=== PATIENT | male | born 1990 | race African-American/Black ===

== ENCOUNTER 2018-01-22 17:37 | Emergency (ER) | payer SELFPAY ==
--- NOTE | 2018-01-22 19:03 | ER ---
Nurse's Notes [facility] Name: Donnell Chester Jr Age: 27 yrs Sex: Male : 1990 Arrival Date: 01/22/2018 Time: 17:40 Bed 23 Private MD: Diagnosis: Influenza due to identified novel influenza A virus Presentation: 01/22 17:53 Presenting complaint: Patient states: cough, congestion, and sore throat x 2 days ago. aa5 Transition of care: patient was not received from another setting of care. Onset of symptoms was January 2018. Risk Assessment: Do you want to hurt yourself or someone else? Patient reports no desire to harm self or others. Initial Sepsis Screen: Does the patient meet any 2 criteria? No. Patient's initial sepsis screen is negative. Does the patient have a suspected source of infection? No. Patient's initial sepsis screen is negative. Care prior to arrival: None. 17:53 Method Of Arrival: Ambulatory aa5 17:53 Acuity: PABLO 4 aa5 Historical: - Allergies: 17:53 No Known Allergies; aa5 - PMHx: 17:53 None; aa5 - PSHx: 17:53 None; aa5 - Immunization history:: Flu vaccine is not up to date. - Social history:: Smoking status: Patient uses tobacco products, smokes one pack cigarettes per day. - Ebola Screening: : No symptoms or risks identified at this time. Screenin:12 Abuse screen: Denies threats or abuse. Nutritional screening: No deficits noted. tl3 Tuberculosis screening: No symptoms or risk factors identified. Fall Risk None identified. Assessment: 18:12 General: Appears in no apparent distress. slender, well groomed, well developed, well tl3 nourished, Behavior is calm, cooperative, appropriate for age. Pain: Complains of pain in sore throat. Neuro: Level of Consciousness is awake, alert, obeys commands, Oriented to person, place, time, situation, Appropriate for age. Cardiovascular: Patient's skin is warm and dry. Respiratory: Reports cough that is productive, persistent Airway is patent Respiratory effort is even, unlabored, Respiratory pattern is regular, symmetrical. GI: No signs and/or symptoms were reported involving the gastrointestinal system. : No signs and/or symptoms were reported regarding the genitourinary system. EENT: Nares with drainage noted Oral mucosa is moist. Throat is reddened. Derm: No signs and/or symptoms reported regarding the dermatologic system. Musculoskeletal: No signs and/or symptoms reported regarding the musculoskeletal system. 19:17 Reassessment: No changes from previously documented assessment. Patient and/or family tl3 updated on plan of care and expected duration. Pain level reassessed. Patient is alert, oriented x 3, equal unlabored respirations, skin warm/dry/pink. Dr Sow at bedside discussing POC with pt and family. Vital Signs: 17:53 BP 134 / 75; Pulse 107; Resp 18 S; Temp 100.1(O); Pulse Ox 99% on R/A; Weight 92.99 kg aa5 (R); Height 6 ft. 3 in. (190.50 cm) (R); Pain 8/10; 19:17 BP 131 / 85; Pulse 85; Resp 18; Pulse Ox 100% on R/A; tl3 17:53 Body Mass Index 25.62 (92.99 kg, 190.50 cm) aa5 ED Course: 17:40 Patient arrived in ED. rg4 17:53 Triage completed. aa5 17:53 Arm band placed on. aa5 17:59 Matti Sow MD is Attending Physician. 18:06 Sara Davila, SARAH is Primary Nurse. tl3 18:12 Patient has correct armband on for positive identification. tl3 18:12 No provider procedures requiring assistance completed. Patient did not have IV access tl3 during this emergency room visit. Administered Medications: No medications were administered Outcome: 19:03 Discharge ordered by . 19:17 Discharged to home ambulatory. tl3 19:17 Condition: stable 19:17 Discharge instructions given to patient, family, Instructed on discharge instructions, follow up and referral plans. medication usage, Demonstrated understanding of instructions, follow-up care, medications, Prescriptions given X 1. 19:20 Patient left the ED. tl3 Signatures: Diya Srinivasan RN RN aa5 Estela Choi rg4 Matti Sow MD MD gs Lowrey, Tammy, RN RN tl3 Corrections: (The following items were deleted from the chart) 17:55 17:53 BP 134 / 75; Pulse 107bpm; Resp 18bpm; Spontaneous; Pulse Ox 99% RA; Temp 100.1F aa5 Oral; aa5
--- NOTE | 2018-01-22 19:03 | EDPHYS ---
Physician Documentation [facility] Name: Donnell Chester Jr Age: 27 yrs Sex: Male : 1990 Arrival Date: 01/22/2018 Time: 17:40 Bed 23 Private MD: ED Physician Matti Sow HPI: 01/22 18:31 This 27 yrs old Black Male presents to ER via Ambulatory with complaints of Flu gs Symptoms. 18:31 Onset: The symptoms/episode began/occurred 2 day(s) ago. Severity of symptoms: At their gs worst the symptoms were moderate, in the emergency department the symptoms are unchanged. Associated signs and symptoms: Pertinent positives: fever, nausea, sore throat, cough. The patient has not experienced similar symptoms in the past. Historical: - Allergies: 17:53 No Known Allergies; aa5 - PMHx: 17:53 None; aa5 - PSHx: 17:53 None; aa5 - Immunization history:: Flu vaccine is not up to date. - Social history:: Smoking status: Patient uses tobacco products, smokes one pack cigarettes per day. - Ebola Screening: : No symptoms or risks identified at this time. ROS: 18:31 All other systems are negative. gs Exam: 18:31 Head/Face: Normocephalic, atraumatic. Eyes: Pupils equal round and reactive to light, gs extra-ocular motions intact. Lids and lashes normal. Conjunctiva and sclera are non-icteric and not injected. Cornea within normal limits. Periorbital areas with no swelling, redness, or edema. ENT: Nares patent. No nasal discharge, no septal abnormalities noted. Tympanic membranes are normal and external auditory canals are clear. Oropharynx with no redness, swelling, or masses, exudates, or evidence of obstruction, uvula midline. Mucous membranes moist. Neck: Trachea midline, no thyromegaly or masses palpated, and no cervical lymphadenopathy. Supple, full range of motion without nuchal rigidity, or vertebral point tenderness. No Meningismus. Chest/axilla: Normal chest wall appearance and motion. Nontender with no deformity. No lesions are appreciated. 18:31 Respiratory: Lungs have equal breath sounds bilaterally, clear to auscultation and percussion. No rales, rhonchi or wheezes noted. No increased work of breathing, no retractions or nasal flaring. Abdomen/GI: Soft, non-tender, with normal bowel sounds. No distension or tympany. No guarding or rebound. No evidence of tenderness throughout. Back: No spinal tenderness. No costovertebral tenderness. Full range of motion. Skin: Warm, dry with normal turgor. Normal color with no rashes, no lesions, and no evidence of cellulitis. MS/ Extremity: Pulses equal, no cyanosis. Neurovascular intact. Full, normal range of motion. Neuro: Awake and alert, GCS 15, oriented to person, place, time, and situation. Cranial nerves II-XII grossly intact. Motor strength 5/5 in all extremities. Sensory grossly intact. Cerebellar exam normal. Normal gait. 18:31 Constitutional: The patient appears alert, awake. 18:31 Cardiovascular: Rate: tachycardic, Rhythm: regular, Pulses: no pulse deficits are appreciated. Vital Signs: 17:53 BP 134 / 75; Pulse 107; Resp 18 S; Temp 100.1(O); Pulse Ox 99% on R/A; Weight 92.99 kg aa5 (R); Height 6 ft. 3 in. (190.50 cm) (R); Pain 8/10; 19:17 BP 131 / 85; Pulse 85; Resp 18; Pulse Ox 100% on R/A; tl3 17:53 Body Mass Index 25.62 (92.99 kg, 190.50 cm) aa5 MDM: 18:06 Patient medically screened. gs 18:31 Differential Diagnosis: Bronchitis Influenza Upper Respiratory Infection. Data gs reviewed: vital signs, nurses notes. 19:02 Response to treatment: the patient's symptoms have markedly improved after treatment, gs and as a result, I will discharge patient. 01/22 18:07 Order name: Flu 01/22 18:07 Order name: Strep; Complete Time: 19:01 gs 01/22 18:08 Order name: Influenza Screen (A ; Complete Time: 19:01 EDMS 01/22 19:02 Order name: Throat Culture EDMS Administered Medications: No medications were administered Disposition: 01/22/18 19:03 Discharged to Home. Impression: Influenza due to identified novel influenza A virus. - Condition is Stable. - Discharge Instructions: Influenza, Adult. - Prescriptions for Tamiflu 75 mg Oral Capsule - take 1 tablet by ORAL route every 12 hours for 5 days; 10 tablet. - Medication Reconciliation Form, Thank You Letter, Antibiotic Education, Prescription Opioid Use, Work release form form. - Follow up: Private Physician; When: 2 - 3 days; Reason: Re-evaluation by your physician. Signatures: Dispatcher [employer] Diya Chu, RN RN aa5 Matti Sow MD MD gs Sara Davila RN RN tl3 Corrections: (The following items were deleted from the chart) 19:20 19:03 01/22/2018 19:03 Discharged to Home. Impression: Influenza due to identified tl3 novel influenza A virus. Condition is Stable. Forms are Medication Reconciliation Form, Thank You Letter, Antibiotic Education, Prescription Opioid Use. Follow up: Private Physician; When: 2 - 3 days; Reason: Re-evaluation by your physician. gs
== END 2018-01-22 19:20 | disposition home or self-care (01) ==
LOC: ER 17:37
DX: J10.1 Influenza due to other identified influenza virus with other respiratory manifestations (principal); F17.210 Nicotine dependence, cigarettes, uncomplicated
CPT/HCPCS: 87070; 87081; 87804; 99282

== ENCOUNTER 2018-12-02 23:28 | Emergency (ER) | payer OTHER, SELFPAY ==
[2018-12-03] MEDS ORDERED: MAGNE/ALUM HYDROXD 30 ML UCUP ONE (00:09)
[2018-12-03] MEDS ORDERED: PANTOPRAZOLE 40 MG INJ ONE (00:10)
[2018-12-03] MEDS ORDERED: LIDOCAINE VISCOUS 2% SOLN 15 ML UDC ONE (00:10)
[2018-12-03] MEDS ORDERED: NA CHLORIDE 0.9% 1,000 ML ONE (00:10)
[2018-12-03 00:32] LABS: Absolute Lymphocytes (CBC) 2.7 K/uL (0.7-4.9); Basophils % 0.8 % (0-1.3); Hematocrit 46.1 % (39.6-49.0); Lymphocytes % 38.7 % (15.3-44.8); MPV 8.9 fL (7.6-11.3); RBC Red Blood Cell Count 5.25 M/uL (4.33-5.43)
[2018-12-03 00:41] LABS: ALT/SGPT 15 U/L (12-78); AST/SGOT 12 U/L (15-37); Albumin 3.9 g/dL (3.4-5.0); Alkaline Phosphatase 68 U/L (45-117); BUN Blood Urea Nitrogen 9 mg/dL (7-18); Bicarbonate 28 mmol/L (21-32); Bilirubin Direct 0.1 mg/dL (0-0.2); Bilirubin Total 0.5 mg/dL (0.2-1.0); Glucose Level 97 mg/dL (74-106); Lipase 212 U/L (73-393); Potassium 3.4 mmol/L (3.5-5.1); Protein, Total 7.4 g/dL (6.4-8.2); Sodium Level 143 mmol/L (136-145)
--- NOTE | 2018-12-03 01:17 | ER ---
Nurse's Notes [facility] Name: Donnell Chester Jr Age: 28 yrs Sex: Male : 1990 Arrival Date: 12/02/2018 Time: 23:32 Bed 19 Private MD: Diagnosis: Abdominal tenderness;Gastritis, unspecified;Hypokalemia Presentation: 12/02 23:42 Presenting complaint: Patient states: on and off abdominal pain since Wednesday. Pain is wh relieved by Pepto-Bismol for a while then come backs. Transition of care: patient was not received from another setting of care. Onset of symptoms was November 29, 2018. Risk Assessment: Do you want to hurt yourself or someone else? Patient reports no desire to harm self or others. Initial Sepsis Screen: Does the patient meet any 2 criteria? No. Patient's initial sepsis screen is negative. Does the patient have a suspected source of infection? No. Patient's initial sepsis screen is negative. Care prior to arrival: None. 23:42 Method Of Arrival: Ambulatory 23:42 Acuity: PABLO 3 Historical: - Allergies: 23:45 No Known Allergies; wh - Immunization history:: Adult Immunizations up to date. - Social history:: Smoking status: Patient uses tobacco products. - Ebola Screening: : Patient negative for fever greater than or equal to 101.5 degrees Fahrenheit, and additional compatible Ebola Virus Disease symptoms Patient denies exposure to infectious person. - Family history:: not pertinent. Screenin:43 Abuse screen: Denies threats or abuse. Denies injuries from another. Nutritional wh screening: No deficits noted. Tuberculosis screening: No symptoms or risk factors identified. Fall Risk None identified. Assessment: 23:43 General: Appears in no apparent distress. Behavior is calm, cooperative, appropriate wh for age. Pain: Complains of pain in abdomen Pain does not radiate. Pain currently is 2 out of 10 on a pain scale. at worst was 8 out of 10 on a pain scale. Pain began 2-3 days ago. Neuro: Level of Consciousness is awake, alert, obeys commands. Cardiovascular: Heart tones S1 S2. Respiratory: Airway is patent Respiratory effort is even, unlabored, Respiratory pattern is regular, symmetrical, Breath sounds are clear bilaterally. GI: Abdomen is flat, non-distended, Bowel sounds present X 4 quads. Abd is soft and non tender X 4 quads. : No signs and/or symptoms were reported regarding the genitourinary system. EENT: No signs and/or symptoms were reported regarding the EENT system. Derm: Skin is intact, is healthy with good turgor, Skin is pink, warm \T\ dry. normal. Musculoskeletal: Circulation, motion, and sensation intact. 12/03 00:46 Reassessment: Patient appears in no apparent distress at this time. No changes from previously documented assessment. Patient and/or family updated on plan of care and expected duration. Pain level reassessed. Patient is alert, oriented x 3, equal unlabored respirations, skin warm/dry/pink. Vital Signs: 12/02 23:45 BP 134 / 69; Pulse 71; Resp 18; Temp 97.9; Pulse Ox 98% on R/A; 12/03 00:47 BP 127 / 75; Pulse 62; Resp 18; Pulse Ox 99% on R/A; ED Course: 12/02 23:32 Patient arrived in ED. cl3 23:38 Franchesca Smith is Primary Nurse. wh 23:[address] MD is Attending Physician. renea 23:43 Triage completed. 23:44 Arm band placed on left wrist. 23:45 Patient has correct armband on for positive identification. Bed in low position. Call light in reach. Side rails up X 1. Pulse ox on. NIBP on. 12/03 00:01 Inserted saline lock: 20 gauge in right antecubital area, using aseptic technique. Blood collected. 01:17 Katelyn Howard MD is Referral Physician. renea 01:29 No provider procedures requiring assistance completed. IV discontinued, intact, bleeding controlled, No redness/swelling at site. Administered Medications: 00:18 Drug: NS 0.9% 1000 ml Route: IV; Rate: 1 bolus; Site: right antecubital; 01:15 Follow up: Response: No adverse reaction; IV Status: Completed infusion 00:18 Drug: ProTONIX 40 mg Route: IVP; Site: right antecubital; 01:15 Follow up: Response: No adverse reaction 00:18 Drug: GI Cocktail without - (Maalox Suspension 30 ml, Lidocaine Liquid 2 % 15 wh ml) Route: PO; 01:15 Follow up: Response: No adverse reaction; Pain is decreased Outcome: 01:17 Discharge ordered by MD. meier 01:29 Discharged to home ambulatory. 01:29 Condition: good 01:29 Discharge instructions given to patient, Instructed on discharge instructions, follow up and referral plans. medication usage, POC Abd Pain Demonstrated understanding of instructions, follow-up care, medications, POC Prescriptions given X 2. 01:30 Patient left the ED. Signatures: Vignesh Lane MD MD cha Habalo, Winsy wh Lewis, Charde cl3
--- NOTE | 2018-12-03 01:18 | EDPHYS ---
Physician Documentation [facility] Name: Donnell Chester Jr Age: 28 yrs Sex: Male : 1990 Arrival Date: 12/02/2018 Time: 23:32 Bed 19 Private MD: ED Physician Vignesh Lane HPI: 12/02 23:55 This 28 yrs old Black Male presents to ER via Ambulatory with complaints of Abdominal renea Pain. 23:55 The patient presents with abdominal pain. Onset: The symptoms/episode began/occurred 5 renea day(s) ago. The symptoms do not radiate. Associated signs and symptoms: none. The symptoms are described as burning, crampy. Modifying factors: The symptoms are alleviated by nothing, the symptoms are aggravated by nothing. Severity of pain: At its worst the pain was mild moderate in the emergency department the pain is unchanged. Historical: - Allergies: 23:45 No Known Allergies; wh - Immunization history:: Adult Immunizations up to date. - Social history:: Smoking status: Patient uses tobacco products. - Ebola Screening: : Patient negative for fever greater than or equal to 101.5 degrees Fahrenheit, and additional compatible Ebola Virus Disease symptoms Patient denies exposure to infectious person. - Family history:: not pertinent. ROS: 23:55 Constitutional: Negative for fever, chills, and weight loss, Eyes: Negative for injury, renea pain, redness, and discharge, ENT: Negative for injury, pain, and discharge, Neck: Negative for injury, pain, and swelling, Cardiovascular: Negative for chest pain, palpitations, and edema, Respiratory: Negative for shortness of breath, cough, wheezing, and pleuritic chest pain, Back: Negative for injury and pain, : Negative for injury, bleeding, discharge, and swelling, MS/Extremity: Negative for injury and deformity, Skin: Negative for injury, rash, and discoloration, Neuro: Negative for headache, weakness, numbness, tingling, and seizure, Psych: Negative for depression, anxiety, suicide ideation, homicidal ideation, and hallucinations, Allergy/Immunology: Negative for hives, rash, and allergies, Endocrine: Negative for neck swelling, polydipsia, polyuria, polyphagia, and marked weight changes, Hematologic/Lymphatic: Negative for swollen nodes, abnormal bleeding, and unusual bruising. 23:55 Abdomen/GI: Positive for abdominal pain, of the epigastric area. Exam: 23:55 Constitutional: This is a well developed, well nourished patient who is awake, alert, renea and in no acute distress. Head/Face: Normocephalic, atraumatic. Eyes: Pupils equal round and reactive to light, extra-ocular motions intact. Lids and lashes normal. Conjunctiva and sclera are non-icteric and not injected. Cornea within normal limits. Periorbital areas with no swelling, redness, or edema. ENT: Nares patent. No nasal discharge, no septal abnormalities noted. Tympanic membranes are normal and external auditory canals are clear. Oropharynx with no redness, swelling, or masses, exudates, or evidence of obstruction, uvula midline. Mucous membranes moist. Neck: Trachea midline, no thyromegaly or masses palpated, and no cervical lymphadenopathy. Supple, full range of motion without nuchal rigidity, or vertebral point tenderness. No Meningismus. Chest/axilla: Normal chest wall appearance and motion. Nontender with no deformity. No lesions are appreciated. Cardiovascular: Regular rate and rhythm with a normal S1 and S2. No gallops, murmurs, or rubs. Normal PMI, no JVD. No pulse deficits. Respiratory: Lungs have equal breath sounds bilaterally, clear to auscultation and percussion. No rales, rhonchi or wheezes noted. No increased work of breathing, no retractions or nasal flaring. Back: No spinal tenderness. No costovertebral tenderness. Full range of motion. Male : Normal genitalia with no discharge or lesions. Skin: Warm, dry with normal turgor. Normal color with no rashes, no lesions, and no evidence of cellulitis. MS/ Extremity: Pulses equal, no cyanosis. Neurovascular intact. Full, normal range of motion. Neuro: Awake and alert, GCS 15, oriented to person, place, time, and situation. Cranial nerves II-XII grossly intact. Motor strength 5/5 in all extremities. Sensory grossly intact. Cerebellar exam normal. Normal gait. Psych: Awake, alert, with orientation to person, place and time. Behavior, mood, and affect are within normal limits. 23:55 Abdomen/GI: Inspection: abdomen appears normal, Bowel sounds: normal, Palpation: mild abdominal tenderness, in the epigastric area, Liver: no appreciated palpable abnormalities, Hernia: not appreciated. Vital Signs: 23:45 BP 134 / 69; Pulse 71; Resp 18; Temp 97.9; Pulse Ox 98% on R/A; 12/03 00:47 BP 127 / 75; Pulse 62; Resp 18; Pulse Ox 99% on R/A; MDM: 12/02 23:38 Patient medically screened. [facility] 23:56 Data reviewed: vital signs, nurses notes, lab test result(s). [facility] 12/02 23:54 Order name: Basic Metabolic Panel; Complete Time: 01: [facility] 12/02 23:54 Order name: CBC with Diff; Complete Time: : [facility] 12/02 23:54 Order name: Creatinine for Radiology; Complete Time: : [facility] 12/02 23:54 Order name: Hepatic Function; Complete Time: : [facility] 12/02 23:54 Order name: Lipase; Complete Time: 01: [facility] 12/02 23:54 Order name: IV Saline Lock; Complete Time: 00:05 [facility] 12/02 23:54 Order name: Labs collected and sent; Complete Time: 00:05 [facility] 12/03 01:12 Order name: PO challenge: juice; Complete Time: 01:14 [facility] Administered Medications: 12/03 00:18 Drug: NS 0.9% 1000 ml Route: IV; Rate: 1 bolus; Site: right antecubital; 01:15 Follow up: Response: No adverse reaction; IV Status: Completed infusion 00:18 Drug: ProTONIX 40 mg Route: IVP; Site: right antecubital; 01:15 Follow up: Response: No adverse reaction 00:18 Drug: GI Cocktail without - (Maalox Suspension 30 ml, Lidocaine Liquid 2 % 15 wh ml) Route: PO; 01:15 Follow up: Response: No adverse reaction; Pain is decreased Disposition: 12/03/18 01:17 Discharged to Home. Impression: Abdominal tenderness, Gastritis, unspecified, Hypokalemia. - Condition is Stable. - Discharge Instructions: Abdominal Pain, Adult, Potassium Content of Foods, Abdominal Pain, Adult, [id number], Hypokalemia. - Prescriptions for Bentyl 20 mg Oral Tablet - take 1 tablet by ORAL route every 6 hours As needed; 20 tablet. Protonix 40 mg Oral Tablet - take 1 tablet by ORAL route once daily; 30 tablet. - Medication Reconciliation Form, Thank You Letter, Antibiotic Education, Prescription Opioid Use form. - Follow up: Private Physician; When: 2 - 3 days; Reason: Recheck today's complaints, Continuance of care, Re-evaluation by your physician. Follow up: Katelyn Howard MD; When: 2 - 3 days; Reason: Recheck today's complaints, Re-evaluation by your physician. - Problem is new. - Symptoms have improved. Signatures: Dispatcher [employer] EDLA Vignesh Lane MD MD cha Habalo, Winsy Corrections: (The following items were deleted from the chart) 01:30 01:17 12/03/2018 01:17 Discharged to Home. Impression: Abdominal tenderness; Gastritis, wh unspecified; Hypokalemia. Condition is Stable. Discharge Instructions: Abdominal Pain, Adult, Abdominal Pain, Adult, [id number]. Prescriptions for Bentyl 20 mg Oral Tablet - take 1 tablet by ORAL route every 6 hours As needed; 20 tablet, Protonix 40 mg Oral Tablet - take 1 tablet by ORAL route once daily; 30 tablet. and Forms are Medication Reconciliation Form, Thank You Letter, Antibiotic Education, Prescription Opioid Use. Follow up: Private Physician; When: 2 - 3 days; Reason: Recheck today's complaints, Continuance of care, Re-evaluation by your physician. Follow up: Katelyn Howard; When: 2 - 3 days; Reason: Recheck today's complaints, Re-evaluation by your physician. Problem is new. Symptoms have improved. renea
[2018-12-03 02:00] VITALS: BP 127/75; TEMP 97.9; O2SAT 99
== END 2018-12-03 01:30 | disposition home or self-care (01) ==
LOC: ER 23:28
DX: K29.70 Gastritis, unspecified, without bleeding (principal); E87.6 Hypokalemia; Z72.0 Tobacco use
CPT/HCPCS: 96361; 85025; 80048; 36415; 80076; 83690; 96374; 99284; C9113; J7030

== ENCOUNTER 2023-01-24 08:11 | Emergency (ER) | payer BC, OTHER, SELFPAY ==
[2023-01-24 08:56] LABS: Absolute Lymphocytes (CBC) 2.5 K/uL (0.7-4.9); Hematocrit 46.5 % (39.6-49.0); Lymphocytes % 33.5 % (15.3-44.8); MCV 86.6 fL (80-100); MPV 8.5 fL (7.6-11.3); Platelets 202 thou/uL (152-406); RBC Red Blood Cell Count 5.36 M/uL (4.33-5.43)
[2023-01-24] MEDS ORDERED: FAMOTIDINE 20 MG/2 ML VIAL IV ONE (09:06)
[2023-01-24 09:14] LABS: Albumin 3.6 g/dL (3.4-5.0); Bilirubin Total 0.4 mg/dL (0.2-1.0); Protein, Total 7.4 g/dL (6.4-8.2)
--- NOTE | 2023-01-24 09:28 | ER ---
Nurse's Notes [facility] Name: Donnlel Chester Jr Age: 32 yrs Sex: Male : 1990 Arrival Date: 01/24/2023 Time: 08:11 Bed 5 Private MD: Diagnosis: Upper abdominal pain, unspecified;Gastro-esophageal reflux disease without esophagitis Presentation: 01/24 08:22 Chief complaint: Patient states: Abdominal pain for 2 weeks. No fever. No N/V/D. ll1 Coronavirus screen: Vaccine status: Patient reports receiving the 2nd dose of the covid vaccine. Client denies travel out of the [place] in the last 14 days. At this time, the client does not indicate any symptoms associated with coronavirus-19. Ebola Screen: Patient denies travel to an Ebola-affected area in the 21 days before illness onset. Initial Sepsis Screen: Does the patient meet any 2 criteria? No. Patient's initial sepsis screen is negative. Does the patient have a suspected source of infection? Yes: Acute abdominal pain. Risk Assessment: Do you want to hurt yourself or someone else? Patient reports no desire to harm self or others. Onset of symptoms was January 11, 2023. 08:22 Method Of Arrival: Ambulatory ll1 08:22 Acuity: PABLO 3 ll1 Triage Assessment: 08:23 General: Appears in no apparent distress. Behavior is calm, cooperative, appropriate ll1 for age. Pain: Complains of pain in abdomen Pain currently is 3 out of 10 on a pain scale. Quality of pain is described as aching, crampy. GI: Reports lower abdominal pain, upper abdominal pain. Historical: - Allergies: 08:21 NSAIDS; ll1 - PMHx: 08:21 None; ll1 - PSHx: 08:21 None; ll1 - Immunization history:: Adult Immunizations up to date. - Social history:: Smoking status: Patient reports the use of cigarette tobacco products, smokes one-half pack cigarettes per day. Screenin:57 [facility] ED Fall Risk Assessment (Adult) History of falling in the last 3 months, ph including since admission No falls in past 3 months (0 pts) Score/Fall Risk Level 0 - 2 = Low Risk Oriented to surroundings, Maintained a safe environment, Hourly rounding (assess needs \T\ fall precautionary measures) done. Abuse screen: Denies threats or abuse. Denies injuries from another. Nutritional screening: No deficits noted. Tuberculosis screening: No symptoms or risk factors identified. Assessment: 08:57 General: Appears in no apparent distress. comfortable, well groomed, Behavior is calm, ph cooperative, appropriate for age. Pain: Complains of pain in epigastric area, right upper quadrant and left upper quadrant Quality of pain is described as burning. Neuro: Level of Consciousness is awake, alert, obeys commands, Oriented to person, place, time, situation. Cardiovascular: Capillary refill < 3 seconds in bilateral fingers Patient's skin is warm and dry. Respiratory: Airway is patent Respiratory effort is even, unlabored. GI: Reports upper abdominal pain, indigestion, Patient currently denies nausea, vomiting. Derm: Skin is normal. Musculoskeletal: Circulation, motion, and sensation intact. Range of motion: intact in all extremities. 09:41 Reassessment: Patient appears in no apparent distress at this time. Patient and/or ph family updated on plan of care and expected duration. Pain level reassessed. Patient is alert, oriented x 3, equal unlabored respirations, skin warm/dry/pink. Patient states feeling better. Patient states symptoms have improved. Vital Signs: 08:22 BP 139 / 95; Pulse 67; Resp 16; Temp 98.4; Pulse Ox 97% on R/A; Weight 99.79 kg; Height ll1 6 ft. 3 in. ; Pain 3/10; 09:30 BP 134 / 87; Pulse 66; Resp 18; Temp 98; Pulse Ox 97% on R/A; ph 08:22 Body Mass Index 27.50 (99.79 kg, 190.5 cm) ll1 08:22 Pain Scale: Adult ll1 ED Course: 08:14 Patient arrived in ED. mg5 08:14 In[facility] Eckert [facility] kb 08:14 Rory Hinojosa MD is Attending Physician. kb 08:21 Arm band placed on Patient placed in an exam room, on a stretcher. ll1 08:23 Triage completed. ll1 08:41 Chelsea Hastings, RN is Primary Nurse. ph 08:52 CBC with Diff Sent. ph 08:52 CMP Sent. ph 08:52 Lipase Sent. ph 08:56 Initial lab(s) drawn, by me, sent to lab. Inserted saline lock: 20 gauge in right ph antecubital area, using aseptic technique. Blood collected. 08:57 Patient has correct armband on for positive identification. Bed in low position. Call ph light in reach. Side rails up X 1. Pulse ox on. NIBP on. Door closed. Noise minimized. 09:30 No provider procedures requiring assistance completed. ph 09:41 IV discontinued, intact, bleeding controlled, No redness/swelling at site. Pressure ph dressing applied. Administered Medications: 08:56 Drug: Famotidine IVP 20 mg IVP once; dilute with 10 mL 0.9% NaCl; give over 2 minutes ph Route: IVP; Site: right antecubital; 09:30 Follow up: Response: No adverse reaction ph Medication: 08:57 VIS not applicable for this client. ph Outcome: :27 Discharge ordered by . kb 09:41 Discharged to home ambulatory, ph 09:41 Condition: good 09:41 Discharge instructions given to patient, Instructed on discharge instructions, follow up and referral plans. medication usage, Demonstrated understanding of instructions, follow-up care, medications, Prescriptions given X 2, 09:41 Patient left the ED. ph Signatures: Inga Eckert, [employer]-C [employer]-Chelsea Walton RN RN ph Zarina Ngo, SARAH RN 1 Michelle Zuleta mg5
--- NOTE | 2023-01-24 09:28 | EDPHYS ---
Physician Documentation [facility] Name: Donnell Chester Jr Age: 32 yrs Sex: Male : 1990 Arrival Date: 01/24/2023 Time: 08:11 Bed 5 Private MD: ED Physician Rory Hinojosa HPI: 01/24 08:26 This 32 yrs old Black Male presents to ER via Ambulatory with complaints of Abdominal kb Pain. 08:26 The patient presents with abdominal pain that is diffuse. Onset: The symptoms/episode kb began/occurred "a few weeks". The symptoms do not radiate. Associated signs and symptoms: none. The symptoms are described as intermittent. Modifying factors: The symptoms are alleviated by food, the symptoms are aggravated by nothing. Severity of pain: At its worst the pain was mild moderate in the emergency department the pain is unchanged. The patient has experienced similar episodes in the past, a few times. The patient has not recently seen a physician. Patient is a 32-year-old male with a history of GERD who presents for diffuse abdominal pain this been going on for a few weeks. States it has been intermittent gets better after eating. Denies nausea, vomiting, diarrhea, fever. States he had similar pain before due to gastritis and GERD but at that time the pain was constant. Came in today because the pain woke him up. Historical: - Allergies: 08:21 NSAIDS; ll1 - PMHx: 08:21 None; ll1 - PSHx: 08:21 None; ll1 - Immunization history:: Adult Immunizations up to date. - Social history:: Smoking status: Patient reports the use of cigarette tobacco products, smokes one-half pack cigarettes per day. ROS: 08:25 Constitutional: Negative for fever, chills, and weight loss, kb 08:25 Abdomen/GI: Positive for abdominal pain, Negative for nausea, vomiting, and diarrhea, 08:25 All other systems are negative, Exam: 08:26 Constitutional: This is a well developed, well nourished patient who is awake, alert, kb and in no acute distress. Head/Face: Normocephalic, atraumatic. ENT: Moist Mucous membranes Cardiovascular: Regular rate Respiratory: Respirations even and unlabored. No increased work of breathing. Talking in full sentences Abdomen/GI: Soft, non-tender. No distention Skin: Warm, dry with normal turgor. Normal color. MS/ Extremity: Pulses equal, no cyanosis. Neurovascular intact. Full, normal range of motion. Neuro: Awake and alert, GCS 15, oriented to person, place, time, and situation. Moves all extremities. Normal gait. Vital Signs: 08:22 BP 139 / 95; Pulse 67; Resp 16; Temp 98.4; Pulse Ox 97% on R/A; Weight 99.79 kg; Height ll1 6 ft. 3 in. ; Pain 3/10; 09:30 BP 134 / 87; Pulse 66; Resp 18; Temp 98; Pulse Ox 97% on R/A; ph 08:22 Body Mass Index 27.50 (99.79 kg, 190.5 cm) ll1 08:22 Pain Scale: Adult ll1 MDM: 08:14 Patient medically screened. kb 08:26 Data reviewed: vital signs, nurses notes. kb 09:25 Differential diagnosis: Cholelithiasis, gastritis, gastroesophageal reflux disease, kb non-specific abd pain. Test considered but Not performed: Ultrasound US abd considered, but pt has no abd tenderness. CT: CT considered, but pt has no abdominal tenderness. 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 01/24 08:22 Order name: CBC with Diff; Complete Time: 09:03 kb 01/24 08:22 Order name: CMP; Complete Time: 09:25 kb 01/24 08:22 Order name: Lipase; Complete Time: 09:25 kb 01/24 08:22 Order name: IV Saline Lock; Complete Time: 08:52 kb 01/24 08:22 Order name: Labs collected and sent; Complete Time: 08:52 kb Administered Medications: 08:56 Drug: Famotidine IVP 20 mg IVP once; dilute with 10 mL 0.9% NaCl; give over 2 minutes ph Route: IVP; Site: right antecubital; 09:30 Follow up: Response: No adverse reaction ph Disposition Summary: 01/24/23 09:27 Discharge Ordered Notes: Location: Home kb Condition: Stable kb Diagnosis - Upper abdominal pain, unspecified kb - Gastro-esophageal reflux disease without esophagitis kb Followup: kb - With: Emergency Department - When: As needed - Reason: Worsening of condition Followup: kb - With: Private Physician - When: 2 - 3 days - Reason: Recheck today's complaints, Continuance of care, Re-evaluation by your physician Discharge Instructions: - Discharge Summary Sheet kb - Gastroesophageal Reflux Disease, Adult, [id number] kb - Peptic Ulcer, [id number] kb Forms: - Medication Reconciliation Form kb - Thank You Letter kb - Antibiotic Education kb - Prescription Opioid Use kb - Patient Portal Instructions kb - Leadership Thank You Letter kb Prescriptions: - Protonix 40 mg Oral Tablet - take 1 tablet ORAL route once daily; 30 tablet; Refills: 0, Product Selection kb Permitted - dicyclomine 20 mg Oral tablet - take 1 tablet ORAL route 4 times per day As needed; 20 tablet; Refills: 0, kb Product Selection Permitted Addendum: 01/26/2023 07:25 I was immediately available for consultation during this patient's visit. I did not e c2 personally see the patient or guide the patient's care.. Signatures: Dispatcher [employer] Inga Webb, DIABETES PHYSICIAN-C DIABETES PHYSICIAN-Chelsea Walton RN Zarina Dean ph, RN RN ll1 Rory Hinojosa MD MD ec2
[2023-01-24 09:56] VITALS: O2SAT 97
[2023-01-24 10:02] VITALS: BP 134/87; TEMP 98
== END 2023-01-24 09:41 | disposition home or self-care (01) ==
LOC: ER 08:11
DX: K21.9 Gastro-esophageal reflux disease without esophagitis (principal)
CPT/HCPCS: 36415; 80053; 83690; 85025; 96374; 99284